=== PATIENT | female | born 1960 | race Caucasian/White ===

== ENCOUNTER → 2016-08-23 | Outpatient (CLI) | payer OTHER ==
--- NOTE | 2016-08-26 08:15 | MM ---
Reason for exam: screening (asymptomatic). Last mammogram was performed 2 years and 4 months ago. History: Patient is postmenopausal. Physical Findings: A clinical breast exam by your physician is recommended on an annual basis and results should be correlated with mammographic findings. MG Screening Mammo w CAD Bilateral CC and MLO view(s) were taken. Prior study comparison: May 02, 2014, bilateral MG screening mammo w CAD. There are scattered fibroglandular densities. Stable dermal calcifications. No significant changes when compared with prior studies. ASSESSMENT: Benign, BI-RAD 2 RECOMMENDATION: Routine screening mammogram of both breasts in 1 year.
== END | disposition home or self-care (01) ==
LOC: RADMAMWWP 09:06
PROVIDERS: ATTEND Family Medicine
DX: Z12.31 Encounter for screening mammogram for malignant neoplasm of breast (principal)

== ENCOUNTER → 2017-04-21 | Outpatient (CLI) | payer OTHER ==
--- NOTE | 2017-04-21 09:30 | US ---
EXAMINATION TYPE: US thyroid st tissue head/neck DATE OF EXAM: 04/21/2017 COMPARISON: Nuclear medicine thyroid scan 03/31/2015 CLINICAL HISTORY: 57-year-old female R94.6 abnormal thyroid labs. Technique: Multiple sonographic images of the thyroid gland are obtained. FINDINGS: Right Lobe: Right thyroid bed scanned no evidence of right thyroid tissue. Left Lobe: 4.7 x 4.3 x 1.5 cm Isthmus Thickness: 0.3 cm NODULES LEFT: # of nodules measured on left: 2 1. 1.3 x 0.7 x 1.0 cm isoechoic solid nodule at the upper pole with well-defined margins . This nod ule is wider than tall and shows intranodular vascularity. no prior 2. 0.5 X 0.3 x 0.4 cm hypoechoic solid nodule at the lower pole with well-defined margins. This nod ule is taller than wide and shows intranodular vascularity.. no prior ISTHMUS: # of nodules measured in the isthmus: 0 Bilateral neck scanned, no evidence of lymphadenopathy. IMPRESSION: 1. 2 nodules in the left lobe measuring 1.3 cm and 0.5 cm. If the larger nodule has previously not be en evaluated, FNA can be considered. 2. No tissue seen within the right thyroidectomy bed.
== END | disposition home or self-care (01) ==
LOC: RADUSWWP 08:03
PROVIDERS: ATTEND Family Medicine
DX: E04.2 Nontoxic multinodular goiter (principal)
CPT/HCPCS: 76536

== ENCOUNTER → 2020-08-28 | Outpatient (CLI) | payer OTHER ==
[2020-08-28 09:33] LABS: Partial Thromboplastin Time 23.1 sec (22.0-30.0); Prothrombin Time 10.3 sec (9.0-12.0)
[2020-08-28 09:36] LABS: Appearance,Urine Cloudy (Clear); Bacteria,Urine Rare /hpf; Bilirubin,Urine Negative (Negative); Blood,Urine Negative (Negative); Color,Urine Yellow; Glucose,Urine (UA) Negative (Negative); Hyaline Casts,Urine 9 /lpf (0-2); Ketones,Urine Negative (Negative); Leukocyte Esterase,Urine Large (Negative); Mucus,Urine Moderate /hpf; Nitrite,Urine Negative (Negative); PH, Urine 5.5 (5.0-8.0); Protein,Urine 1+ (Negative); RBC,Urine 2 /hpf (0-5); Specific Gravity,Urine 1.034 (1.001-1.035); Squamous Epithelial Cell,Urine 8 /hpf (0-4); WBC,Urine 5 /hpf (0-5)
[2020-08-28 09:43] LABS: Albumin 4.2 g/dL (3.5-5.0); Calcium 9.9 mg/dL (8.4-10.2); Potassium 4.5 mmol/L (3.5-5.1); Total Bilirubin 0.5 mg/dL (0.2-1.3); Total Protein 7.4 g/dL (6.3-8.2)
[2020-08-28 09:59] LABS: T4, Free (Free Thyroxine) 1.71 ng/dL (0.78-2.19)
[2020-08-28 10:07] LABS: HCT 42.2 % (34.0-46.0); HGB 14.1 gm/dL (11.4-16.0); MCH 30.3 pg (25.0-35.0); MCHC 33.4 g/dL (31.0-37.0); MCV 90.8 fL (80.0-100.0); Mean Platelet Volume 9.3; Platelet Count 217 k/uL (150-450); RBC 4.65 m/uL (3.80-5.40); RDW 13.3 % (11.5-15.5); WBC 4.9 k/uL (3.8-10.6)
[2020-08-28 12:40] LABS: Lymphocytes # (M) 0.44 k/uL (1.0-4.8); Neutrophils # (M) 4.17 k/uL (1.3-7.7); Neutrophils % (M) 85 %; Nucleated Red Blood Cells 0 /100 WBC (0-0); Poikilocytosis (M) Present; Total Cells Counted 100
== END | disposition home or self-care (01) ==
LOC: LABPAT 09:00
PROVIDERS: ATTEND Orthopaedic Surgery
DX: Z01.812 Encounter for preprocedural laboratory examination (principal); E03.9 Hypothyroidism, unspecified
CPT/HCPCS: 80053; 81001; 84439; 84443; 85025; 85610; 85730; 87070

== ENCOUNTER 2020-09-11 13:34 | Day surgery (SDC) | payer OTHER ==
[2020-09-08 08:44] VITALS: BMI 35.8
[~2020-09-11 13:34] MED LIST: ACETAMINOPHEN TAB 500 MG TAB PO PRN; DEXAMETHASONE SOD PHOSPHATE 4 MG/ML 1 ML VIAL IV ONE; MELOXICAM 7.5 MG TAB PO PRN; ONDANSETRON 4 MG/2 ML VIAL IVP PRN; ROPIVACAINE/EPI/CLONIDINE/KET 50 ML SYRINGE MISCELLANE PRN; TRANEXAMIC ACID 1,000 MG in SODIUM CHLORIDE 0.9% 100 ML IVPB PRN
[2020-09-11 14:12] LABS: Glucose,Whole Blood 102 mg/dL (75-99)
[2020-09-11] MEDS: LACTATED RINGERS 1,000 ML IV SCH ×4 (14:14→21:28)
[2020-09-11] MEDS ORDERED: LIDOCAINE 1% (10MG/ML) FOR IV START INTRADERMA ONE (14:15)
[2020-09-11] MEDS ORDERED: MIDAZOLAM 2 MG/2 ML VIAL IV ONE ×3 (14:24→14:39)
[2020-09-11] MEDS: fentaNYL (PF) 50 MCG/ML 2 ML AMP IV ONE ×2 (14:24→14:38)
--- NOTE | 2020-09-11 14:55 | P.ANPRN ---
Procedure Note - Anesthesia - Nerve Block Performed Right Adductor Canal Infusion Time Out Performed: Yes ([id number]) Date of Procedure: 09/11/20 Procedure Start Time: 12:24 Procedure Stop Time: 12:31 Location of Patient: PreOp Indication: Acute Post-Operative Pain, Requested by Surgeon Specifically requested for management of pain by DrAdela: Jeramie Cuevas Sedation Type: Sedate with meaningful contact maintained Preparation: Sterile Prep, Sterile Dressing Position: Supine Catheter Depth at Skin (cm): 9 Catheter: Indwelling Needle Types: Pajunk Needle Gauge: 21 Ultrasound used to visualize needle placement: Yes Ultrasound used to observe medication spread: Yes Injectate: 0.5% Ropivacaine (see comment for volume) (15cc) Blood Aspirated: No Pain Paresthesia on Injection Noted: No Resistance on Injection: Normal Image Stored and Saved: Yes Events: Uneventful and Well Tolerated Right iPack Single Time Out Performed: Yes (142) Date of Procedure: 09/11/20 Procedure Start Time: 12:32 Procedure Stop Time: 12:37 Location of Patient: PreOp Indication: Acute Post-Operative Pain, Requested by Surgeon Specifically requested for management of pain by Dr.: Jeramie Cuevas Sedation Type: Sedate with meaningful contact maintained Preparation: Sterile Prep Position: Supine Catheter: None Needle Types: Pajunk Needle Gauge: 21 Ultrasound used to visualize needle placement: Yes Ultrasound used to observe medication spread: Yes Injectate: 0.5% Ropivacaine (see comment for volume) (15cc) Blood Aspirated: No Pain Paresthesia on Injection Noted: No Resistance on Injection: Normal Image Stored and Saved: Yes Events: Uneventful and Well Tolerated
[2020-09-11] MEDS ORDERED: ONDANSETRON 4 MG/2 ML VIAL IVP PRN (14:56)
[2020-09-11] MEDS ORDERED: MAGNESIUM HYDROXIDE 2,400 MG/10 ML CUP PO PRN (14:56)
[2020-09-11] MEDS ORDERED: NA PHOS,M-B/NA PHOS,DI-BA 133 ML ENEMA RECTAL PRN (14:56)
[2020-09-11] MEDS ORDERED: traMADol 50 MG TAB PO PRN (14:56)
[2020-09-11] MEDS ORDERED: bisacodyL 10 MG SUPP RECTAL PRN (14:56)
[2020-09-11] MEDS ORDERED: NALOXONE 0.4 MG/ML 1 ML VIAL IV PRN (14:56)
[2020-09-11] MEDS ORDERED: TEMAZEPAM 15 MG CAP PO PRN (14:56)
[2020-09-11] MEDS ORDERED: SODIUM CHLORIDE 0.9% (PF) 10 ML VIAL ONE (14:58)
[2020-09-11] MEDS ORDERED: SUCCINYLCHOLINE CHLORIDE 100 MG/5 ML SYR IV ONE (14:58)
[2020-09-11] MEDS ORDERED: ROPIVACAINE 5 MG/ML 30 ML VIAL ONE (14:58)
[2020-09-11] MEDS ORDERED: TRANEXAMIC ACID 1,000 MG/10 ML VIAL ONE (14:58)
[2020-09-11] MEDS ORDERED: PROPOFOL 10 MG/ML 20 ML VIAL IV ONE (14:58)
[2020-09-11] MEDS ORDERED: SODIUM CHLORIDE 0.9% 100 ML BAG ONE (14:58)
[2020-09-11] MEDS ORDERED: LIDOCAINE 1% INJ 10MG/ML (20 ML MDV) ONE (14:58)
[2020-09-11] MEDS ORDERED: fentaNYL (PF) 50 MCG/ML 2 ML AMP ONE (14:58)
[2020-09-11] MEDS ORDERED: ROCURONIUM 10 MG/ML (5 ML VIAL) IV ONE (14:58)
[2020-09-11] MEDS ORDERED: ceFAZolin 1,000 MG in SODIUM CHLORIDE 0.9% 1,000 ML IRRIGATION ONE (15:03)
--- NOTE | 2020-09-11 16:30 | P.OP ---
Date of Procedure: 09/11/20 Procedure(s) Performed: PREOPERATIVE DIAGNOSIS: Right knee severe osteoarthritis with genu varum POSTOPERATIVE DIAGNOSIS: Right knee severe osteoarthritis with genu varum OPERATION: Right knee cemented total replacement arthroplasty. ANESTHESIA: General and regional ESTIMATED BLOOD LOSS: 100 ml. [employer] SUPERVISOR: Addie Talbot PA-C (assistance with: patient positioning, retraction, exposure, hemostasis, leg positioning, implantation, irrigation, closure, dressing) COMPLICATIONS: None apparent. COMPONENTS IMPLANTED: Journey II BCS total knee system from [employer] INDICATIONS: Emelia is a 60 year old female with a history of right knee osteoarthritis. The patient's knee is end-stage, and conservative management has failed. The operation of knee replacement has been discussed at length in the office, as well as potential risks and complications. These are inclusive o f, but not limited to: bleeding, infection, scarring, discomfort, blood vessel and nerve damage, need for further surgery, failure to relieve symptoms, persistence, recurrence, or worsening of problems, loosening, dislocation, wear, blood clot, pulmonary embolism, , gait dysfunction, stiffness, and other risks as discussed in the office. The patient elects to proceed and the consent form has been signed. PROCEDURE: The patient was taken to the operating room and positioned on the operating room table in the supine position. Anesthesia was initiated. Care was taken to make sure that all pressure points were adequately padded. The operative lower extremity was prepped and draped in the usual aseptic fashion using ChloraPrep. Ioban drape was used for the case and the patient received intravenous antibiotics within one hour of the incision. A pneumotourniquet and leg evans were used for the case. The limb was exsanguinated with an Esmarch bandage and the tourniquet was inflated to 350 mmHg. Time-out was called confirming the patient's identity, side, procedure and administration of antibiotics and tranexamic acid. The incision was then created midline directly over the right knee, carried down through skin and into the subcutaneous tissues and down to fascia. Full thickness subcutaneous medial flap was developed. Medial parapatellar arthrotomy was performed and the interior of the knee was inspected. There was end-stage osteoarthritis of the knee with a mild to moderate genu valgum type deformity. The fat pad was excised and proximal medial release on the tibia was completed using meticulous dissection and a curved osteotome. The anterior cruciate ligament was taken down. Note was made of significant attrition of the anterior and significant degenerative appearance of the cruciate ligaments. The exposure was excellent. The knee was flexed 90 degrees and the patella was everted. The [employer] pre- made distal cutting block was attached and pinned into position. The planned cut was analyzed visually and with the alignment connor and found to be satisfactory without the need for any adjustment. The oscillating saw was then used to make the distal femoral cut and make the alignment holes for the 5 in 1 block. This cut was confirmed to be flat with the flat end of an osteotome. The 5 in 1 block was then used to create the anterior posterior condylar resections and the chamfer cuts. The retractors were placed around the tibia and the tibial surface was addressed. The [employer] pre-made guide was placed onto the exposed tibial surface and pinned into position to armand the rotational alignment. The alignment of the guide was checked for depth of plannned resection, slope, and varus valgus. Guide was confirmed to be in good position and the tibial cut was then created with protection of the posterior neurovascular structures and the collateral ligaments. The tibial cut surface was removed and sized. Spacer block technique was then used to confirm that the flexion and extension gaps were equal. Soft tissue releases and adjustment of the tibial and/or femoral cuts were made, as necessary, until the gaps were equal. This included release of the posterior cruciate ligament, which was excessively tight in this patient. The trial components were inserted. The tibial tray was allowed to self center and the patella was noted to track very well. The position of the tibial component was marked and noted to be nearly exactly aligned with the pre-drilled holes from the [employer] guide. The tibia was then finished for a stemmed tibi al component. Patellar resurfacing was performed using a reamer. The size of the required patellar component was estimated and the patellar surface was then reamed down to a residual thickness which would recreate the [place] thickness with the component. The exact placement of the patellar component was adjusted for position based on preoperative x-rays and intraoperative findings. Trial components were removed and the cut surfaces of the bone were pulse lavaged thoroughly and dried. Cement was mixed on the back table and applied to the final components. Cement was then applied to the tibial surface and pressurized into the surface using finger pressurization technique. The tibial component was then applied and excess cement was removed after it was impacted securely and noted to be flush with the cut surface. In similar fashion, the cement was applied to the cut femoral surface, pressurized in using finger pressurization and the component was impacted into place. Excess cement was removed. The polyethylene spacer was then implanted and locked into position. The patellar component was then applied in similar technique and a patellar clamp was used to hold the patella in place as the cement hardened. Once the cement had fully hardened, the knee was reinspected. Any other cement extrusion was removed and final kinematic testing showed range of motion from 0 to 130 degrees with excellent stability, both medially and laterally and appropriate alignment of the leg. Patellar tracking was excellent. The knee was then thoroughly pulse lavaged with normal saline. The tourniquet was deflated and hemostasis was obtained with electrocautery and IV tranexamic acid, 1 g given at the start of the operation and 1 g at the start of closure. Closure was with #2 Ethibond in the fascia/capsule and supplemented with #2 Quill, 2-0 Vicryl suture was used for the subcutaneous tissues and 3-0 Quill for the skin. Dermabond/Steri-Strips were then applied. A lightly compressive ashley ssing was applied using Webril and an Silvino wrap. The patient was then transferred to stretcher and taken to the recovery room in stable condition. Sponge and needle counts were correct.
[2020-09-11] MEDS ORDERED: LACTATED RINGERS 1,000 ML IV ONE (16:38)
[2020-09-11] MEDS: HYDROmorphone 0.5 MG/0.5 ML SYRINGE IVP PRN ×2 (17:04→17:11)
[2020-09-11] MEDS ORDERED: diphenhydrAMINE 50 MG/ML 1 ML VIAL IVP ONE (17:08)
[2020-09-11] MEDS ORDERED: hydrALAZINE HCL 20 MG/ML 1 ML VIAL IVP ONE (17:41)
--- NOTE | 2020-09-11 17:44 | XR ---
EXAMINATION TYPE: XR knee limited RT DATE OF EXAM: 09/11/2020 COMPARISON: NONE HISTORY: Postop knee surgery TECHNIQUE: 2 views FINDINGS: There is right knee prosthesis. Components are in anatomic position. IMPRESSION: No complicating process seen.
[2020-09-11] MEDS ORDERED: MORPHINE SULFATE 4 MG/ML SYRINGE IVP PRN (18:43)
[2020-09-11] MEDS ORDERED: SENNOSIDES-DOCUSATE SODIUM 1 EACH TAB PO SCH (21:00)
[2020-09-11] MEDS: ASPIRIN 81 MG PO SCH (21:25)
--- NOTE | 2020-09-11 21:36 | P.CONS ---
History of Present Illness - Reason for Consult Consult date: 09/11/20 - History of Present Illness Patient is a 60-year-old female with a PMH of hypothyroidism and hypertension who was admitted to the hospital for an elective right total knee replacement which she underwent earlier today without any immediate postoperative palpitations. She was seen on the surgical unit postoperatively. She reported continued 8 out of 10 right knee pain but denied additional complaints. She denied chest discomfort, shortness of breath, fever, chills, cough. Denied abdominal pain, nausea, vomiting, diarrhea. She reports compliance with her medications at home. Review of systems: Pertinent positives and negatives as discussed in HPI, a complete review of systems was performed and all other systems are negative. Physical examination: General: non toxic, no distress, appears at stated age, obese Derm: no unusual rashes/lesions no unusual ecchymoses, warm, dry Head: atraumatic, normocephalic, symmetric Eyes: EOMI, no lid lag, anicteric sclera, pupils equal round reactive to light ENT: Nose and ears atraumatic, no thrush, no pharyngeal erythema Neck: No thyromegaly, no cervical lymphadenopathy, trachea midline, supple Mouth: no lip lesion, mucus membranes moist Cardiovascular: S1S2 reg, no murmur, positive posterior tibial pulse bilateral, no edema, capillary refill less than 2 seconds Lungs: CTA bilateral, no rhonchi, no rales , no accessory muscle use Abdominal: soft, nontender to palpation, no guarding, no appreciable organomegaly, normal bowel sounds Ext: no gross muscle atrophy, muscle strength 5 out of 5 in all extremities except right lower extremity due to pain, no contractures, right lower extremity MAIDA bandage in place Neuro: CN II-XI grossly intact, light touch intact all 4 extremities, finger to nose within normal limits, Psych: Lethargic, oriented, appropriate affect Assessment/plan Status post right total knee replacement -Defer management including pain control and DVT prophylaxis to the surgical service -Patient currently on pain pump Chronic conditions: Hypothyroidism, hypertension -Continue with home meds Past Medical History Past Medical History: Hypertension, Osteoarthritis (OA), Thyroid Disorder History of Any Multi-Drug Resistant Organisms: None Reported Additional Past Surgical History / Comment(s): teeth extraction Past Anesthesia/Blood Transfusion Reactions: Previous Problems w/ Anesthesia Additional Past Anesthesia/Blood Transfusion Reaction / Comm: "very slow to wake up" Past Psychological History: No Psychological Hx Reported Smoking Status: Never smoker Past Alcohol Use History: Rare Past Drug Use History: None Reported - Past Family History Father Family Medical History: Cancer Additional Family Medical History / Comment(s): lung Brother(s) Family Medical History: Cancer Additional Family Medical History / Comment(s): brain Medications and Allergies Home Medications Medication Instructions Recorded Confirmed Type Atenolol [Tenormin] 50 mg PO QAM 09/08/20 09/08/20 History Levothyroxine Sodium [Synthroid] 88 mcg PO HS 09/08/20 09/08/20 History Multivitamins, Thera [Multivitamin 1 tab PO DAILY 09/08/20 09/08/20 History (formulary)] Naproxen Sodium [Aleve] 220 mg PO BID PRN 09/08/20 09/08/20 History Aspirin [Adult Low Dose Aspirin EC] 81 mg PO BID #1 tablet. 09/11/20 Rx Gabapentin [Neurontin] 300 mg PO BID 5 Days #10 cap 09/11/20 Rx Meloxicam [Mobic] 1 - 2 tab PO DAILY PRN #60 tab 09/11/20 Rx Ondansetron Odt [Zofran Odt] 4 mg PO Q8HR PRN #14 tab 09/11/20 Rx Sennosides-Docusate Sodium 1 tab PO BID #60 tablet 09/11/20 Rx [Senokot-S] traMADol HCL [Ultram] 50 mg PO Q6HR PRN #28 tab 09/11/20 Rx Allergies Allergy/AdvReac Type Severity Reaction Status Date / Time Iodinated Contrast Media Allergy Rash/Hives Verified 09/08/20 08:36 adhesive AdvReac Rash/Hives Verified 09/11/20 14:10 codeine AdvReac "I felt Verified 09/08/20 08:36 very high" erythromycin base AdvReac Nausea & Verified 09/08/20 08:36 Vomiting Physical Exam Vitals: Vital Signs Temp Pulse Pulse Resp BP BP Pulse Ox 09/11/20 20:21 98 09/11/20 18:30 97.1 F L 94 18 157/74 97 09/11/20 18:15 65 16 128/66 100 09/11/20 18:02 47 L 18 161/73 100 09/11/20 17:46 55 L 16 173/77 98 09/11/20 17:32 54 L 16 177/78 100 09/11/20 17:16 50 L 16 191/78 100 09/11/20 16:56 97.3 F L 59 L 20 201/84 99 09/11/20 14:42 49 L 16 148/66 99 09/11/20 14:10 97 F L 20 142/85 100 Intake and Output 09/11/20 09/11/20 09/11/20 06:59 14:59 22:59 Intake Total 200 1351 Output Total 50 Balance 200 1301 Intake: IV 200 1351 Output: Estimated Blood Loss 50 Other: Weight 90 kg 90 kg Results Labs: Abnormal Lab Results - Last 24 Hours (Table) 09/11/20 Range/Units 14:10 POC Glucose (mg/dL) 102 H (75-99) mg/dL
[2020-09-12] MEDS ORDERED: LEVOTHYROXINE 88 MCG TAB PO SCH ×2 (06:30→21:00)
[2020-09-12] MEDS: ASPIRIN 81 MG PO SCH (06:55)
[2020-09-12] MEDS: LACTATED RINGERS 1,000 ML IV SCH (07:00)
--- NOTE | 2020-09-12 07:03 | P.PN ---
Progress Note - Text Progress Note Date: 09/12/20 Postoperative day # 1 status post total knee arthroplasty, and adductor canal catheter placed for postoperative analgesia, currently at ropivacaine 0.2% 8 mL per hour and continuous infusion, visual analogue scale is 3/10, patient using oral pain medication for breakthrough pain. Assessment and plan= Acute postoperative pain, adductor canal catheter for pain control, pain is well controlled we'll continue the same management.
[2020-09-12 07:43] VITALS: BP 158/76; PULSE 66; RESP 18; TEMP 98.7
--- NOTE | 2020-09-12 08:52 | P.DS ---
Providers Expected date of discharge: 09/12/20 Attending physician: Jeramie Cuevas Consults: 09/11/20 15:02 Consult Physician Routine Consulting Provider: Tico Gardiner Consult Reason/Comments: Medical management Do you want consulting provider notified?: Yes Primary care physician: Humphrey Cannon - Discharge Diagnosis(es) (1) Osteoarthritis of right knee Current Visit: Yes Status: Acute (2) Status post total right knee replacement Current Visit: Yes Status: Acute Hospital Course: This is a 60-year-old female with known history of degenerative arthritis of the right knee. The patient presented for evaluation as an outpatient. After discu ssion and consideration patient elects to proceed with total knee arthroplasty. The patient is seen preoperatively by Dr. Cuevas and medically cleared for surgery by their primary care physician. Patient is admitted to [facility] on 09/11/2020 for total knee arthroplasty. The procedure is performed without complication or sequelae. The patient is doing well postoperatively. Labs and vital signs are stable on day of discharge. On day of discharge patient's knee incision is healing well. There is minimal erythema. There is no drainage noted at this time. There is minimal soft tis perla swelling to the knee. Patient has full foot and ankle motion without difficulty or pain. Calf is soft and nontender to palpation. Neurovascular status to the right lower extremity is intact. Patient is discharged home in good condition. Opioid start talking form is reviewed and signed. Please see med rec for accurate list of home medications. Plan - Discharge Summary Discharge Rx Participant: No New Discharge Prescriptions: New Meloxicam [Mobic] 1 - 2 tab PO DAILY PRN #60 tab PRN Reason: Pain traMADol HCL [Ultram] 50 mg PO Q6HR PRN #28 tab PRN Reason: Pain Aspirin [Adult Low Dose Aspirin EC] 81 mg PO BID #1 tablet. Gabapentin [Neurontin] 300 mg PO BID 5 Days #10 cap Sennosides-Docusate Sodium [Senokot-S] 1 tab PO BID #60 tablet Ondansetron Odt [Zofran Odt] 4 mg PO Q8HR PRN #14 tab PRN Reason: Nausea No Action Atenolol [Tenormin] 50 mg PO QAM Naproxen Sodium [Aleve] 220 mg PO BID PRN PRN Reason: Pain Multivitamins, Thera [Multivitamin (formulary)] 1 tab PO DAILY Levothyroxine Sodium [Synthroid] 88 mcg PO HS Discharge Medication List Atenolol [Tenormin] 50 mg PO QAM 09/08/20 [History] Levothyroxine Sodium [Synthroid] 88 mcg PO HS 09/08/20 [History] Multivitamins, Thera [Multivitamin (formulary)] 1 tab PO DAILY 09/08/20 [History] Naproxen Sodium [Aleve] 220 mg PO BID PRN 09/08/20 [History] Aspirin [Adult Low Dose Aspirin EC] 81 mg PO BID #1 tablet. 09/11/20 [Rx] Gabapentin [Neurontin] 300 mg PO BID 5 Days #10 cap 09/11/20 [Rx] Meloxicam [Mobic] 1 - 2 tab PO DAILY PRN #60 tab 09/11/20 [Rx] Ondansetron Odt [Zofran Odt] 4 mg PO Q8HR PRN #14 tab 09/11/20 [Rx] Sennosides-Docusate Sodium [Senokot-S] 1 tab PO BID #60 tablet 09/11/20 [Rx] traMADol HCL [Ultram] 50 mg PO Q6HR PRN #28 tab 09/11/20 [Rx] Follow up Appointment(s)/Referral(s): Addie Talbot, ASUNCION [PHYSICIAN CANE PACKER] - 2 Weeks Activity/Diet/Wound Care/Special Instructions: May bear weight as tolerated with walker. May shower 48hours post op. Keep Optifoam dressing intact 10 days post op. Discharge Disposition: HOME SELF-CARE
[2020-09-12] MEDS ORDERED: MELOXICAM 7.5 MG TAB PO SCH (09:00)
[2020-09-12] MEDS ORDERED: atenoloL 50 MG TAB PO SCH (09:00)
[2020-09-12 09:11] LABS: Basophils # (A) 0.01 X 10*3/uL (0.00-0.10); Basophils % (A) 0.1 %; Eosinophils # (A) 0 X 10*3/uL (0.04-0.35); Eosinophils % (A) 0 %; HCT 35.5 % (37.2-46.3); HGB 11.4 g/dL (12.0-15.0); Lymphocytes % (A) 9.2 %; MCH 29.5 pg (27.0-32.0); MCHC 32.1 g/dL (32.0-37.0); MCV 91.7 fL (80.0-97.0); Mean Platelet Volume 12.5 fL (9.5-12.2); Monocytes # (A) 0.85 X 10*3/uL (0.20-1.00); Monocytes % (A) 6.5 %; Neutrophils # (A) 10.96 X 10*3/uL (1.80-7.70); Neutrophils % (A) 83.6 %; Platelet Count 216 X 10*3/uL (140-440); RBC 3.87 X 10*6/uL (4.10-5.20); RDW 14.3 % (11.5-14.5)
--- NOTE | 2020-09-12 09:58 | P.PN ---
Subjective Progress Note Date: 09/12/20 Hospital course: Patient is a very pleasant 60-year-old female with a past medical history of hypertension and hypothyroidism. She is currently admitted status post total right knee arthroplasty completed by Dr. Cuevas. We have been consulted to follow along throughout her hospitalization to provide continued close medical management. Patient is currently postoperative day 1. She reports doing well. States pain is controlled. Denies having any postoperative nausea or vomiting. Patient has been ambulating to and from restroom without difficulties. Patient denies having any complaints or needs including headache, lightheadedness, chest pain, palpitations, shortness of breath, abdominal pain, or experiencing any numbness/tingling/weakness in her extremities. Physical exam: General: non toxic, no distress, appears at stated age Derm: warm, dry Head: atraumatic, normocephalic, symmetric Eyes: EOMI, no lid lag, anicteric sclera Mouth: no lip lesion, mucus membranes moist Cardiovascular: S1S2 reg, no murmur, positive posterior tibial pulse bilateral, Lungs: CTA bilateral, no rhonchi, no rales , no accessory muscle use Abdominal: soft, nontender to palpation, no guarding, no appreciable organomegaly Ext: no gross muscle atrophy, no edema, no contractures. Postoperative dressing right knee intact no signs of bleeding or drainage. Neuro: CN II-XI grossly intact, no focal neuro deficits Psych: Alert, oriented, appropriate affect Plan of care: Status post total right knee arthroplasty -Pain management, DVT prophylaxis, wound care, PT/OT, and weightbearing per primary admitting orthopedic team. -Patient currently on DVT prophylaxis with aspirin and SUNSHINE hose. Hypertension -Monitor vital signs and Continue daily medication regimen. Hypothyroidism -Continue daily medication regimen. Thank you for allowing us to participate in the care of this pleasant patient. Do not hesitate to contact us with questions. Someone can be reached from the [facility]– [place]Note 2[place] hospitalist group all hours of the day at [phone] or via [employer] serve.. Objective - Vital Signs Vital signs: Vital Signs Temp 98.7 F 09/12/20 07:43 Pulse 66 09/12/20 07:43 Resp 18 09/12/20 07:43 BP 158/76 09/12/20 07:43 Pulse Ox 97 09/12/20 07:43 Intake & Output 09/11/20 09/12/2009/12/21 18:59 06:59 18:59 Intake Total 1551 200 300 Output Total 50 Balance 1501 200 300 Weight 90 kg Intake: IV 1551 Oral 200 300 Output: Estimated Blood Loss 50 Other: Voiding Method Toilet Toilet # Voids 1 - Labs CBC & Chem 7: 09/12/20 06:04 Labs: Abnormal Lab Results - Last 24 Hours (Table) 09/11/20 09/12/20 Range/Units 14:10 06:04 WBC 13.10 H (4.50-10.00) X 10*3/uL RBC 3.87 L (4.10-5.20) X 10*6/uL Hgb 11.4 L (12.0-15.0) g/dL Hct 35.5 L (37.2-46.3) % MPV 12.5 H (9.5-12.2) fL Immature Gran # 0.08 H (0.00-0.04) X 10*3/uL Neutrophils # 10.96 H (1.80-7.70) X 10*3/uL Eosinophils # 0 L (0.04-0.35) X 10*3/uL POC Glucose (mg/dL) 102 H (75-99) mg/dL
== END 2020-09-12 10:44 | disposition home or self-care (01) ==
LOC: OR 13:34 → 4SSUR 16:57 → OR 09-12 10:44
PROVIDERS: ATTEND Orthopaedic Surgery
DX: M17.11 Unilateral primary osteoarthritis, right knee (principal); M21.161 Varus deformity, not elsewhere classified, right knee; I10 Essential (primary) hypertension; E03.9 Hypothyroidism, unspecified; Z79.899 Other long term (current) drug therapy; Z88.5 Allergy status to narcotic agent; Z88.1 Allergy status to other antibiotic agents; Z91.041 Radiographic dye allergy status; R20.2 Paresthesia of skin; R53.1 Weakness
CPT/HCPCS: 97161; 64999; 64448; 76942; 85025; 88300; 73560; 27447; C1713; C1776; J2250; J2270; J0360; J1200; J1100; J0690 ×3; J2405; J2001; J3010; J2795; J0330; J2704; J1170

== ENCOUNTER → 2021-07-31 | Outpatient (CLI) | payer OTHER ==
--- NOTE | 2021-07-31 16:10 | BD ---
EXAMINATION TYPE: Axial Bone Density DATE OF EXAM: 07/31/2021 COMPARISON: NONE CLINICAL HISTORY: 61 years year old Female. ICD-10 CODE: BONE DENSITY Height: 5 FT 2 IN Weight: 206 FRAX RISK QUESTIONS: Alcohol (3 or more units per day): NO Family History (Parent hip fracture): NO Glucocorticoids (More than 3mos): NO (Ex: prednisone, prednisolone, methylprednisolone, dexamethasone, and hydrocortisone). History of Fracture in Adulthood: NO Secondary Osteoporosis: 1. Type 1 Diabetes: NO 2. Hyperthyroidism: NO 3. Menopause before 45: AROUND 4. Malnutrition: NO 5. Chronic liver disease: NO Rheumatoid Arthritis: NO Current Tobacco Use: NO RISK FACTORS HISTORY OF: Surgery to Spine/Hip(right/left)/Wrist (right/left): LUMBAR When: 2000 Family History of Osteoporosis: NO Active: YES Diet low in dairy products/other sources of calcium: NO Postmenopausal woman: YES Take estrogen and/or progesterone medications: NO Lost more than 2 inches in height since high school: NO Frequent falls: NO Poor Health: GOOD Hyperparathyroidism: NO Adrenal Insufficiency: NO MEDICATIONS: Thyroid Medications: YES Which medication: LEVOTHYROXINE How Long: APPROX 22 YEARS Additional Medications: LEVOTHYROXINE, LOSARTAN Additional History: EXAM MEASUREMENTS: Bone mineral density about the R hip (g/cm2): 0.911 Bone mineral density about the L hip (g/cm2): 0.917 T Score values are as follows: -----R Neck: -0.9 -----L Neck: -0.9 -----R Total: -0.7 -----L Total: -0.4 BASELINE Bone mineral density about the L Wrist (g/cm2): 0.726 T Score values are as follows: -----Dist. R+U: 0.7 -----Prox. R+U: 0.9 -----Radius total: 0.9 BASELINE FRAX%s: The graph provided illustrates a 6.8 % chance for a major osteoporotic fx and a 0.4 % chance for the hips probability for fx in 10 years time. IMPRESSION: Normal (Values between +1 and -1 indicate normal bone mass). However, note that measurements are bord ering on osteopenia at both hips. Consider repeating this study in 5 years or sooner if there is some new clinical indication. NOTE: T-SCORE=SD OF THE YOUNG ADULT MEAN.
--- NOTE | 2021-08-01 08:57 | MM ---
Reason for Exam: Screening (asymptomatic). Last mammogram was performed 4 year(s) and 11 month(s) ago. Patient History: Menarche at age 11. First Full-Term at age 28. Postmenopausal. Risk Values: Zoraida 5 year model risk: 1.7%. NCI Lifetime model risk: 7.7%. Film Views: Bilateral CC views were taken. Bilateral MLO views were taken. Left CCNIP views were taken. Prior Study Comparison: 05/02/2014 Bilateral Screening Mammogram, [facility]. 08/23/2016 Bilateral Screening Mammogram, [facility]. Tissue Density: There are scattered fibroglandular densities. Findings: Analyzed By CAD. There is no suspicious group of microcalcifications or new suspicious mass in either breast. Benign-appearing calcifications. Stable asymmetric density central margin right breast. Calcifications upper outer quadrant left breast. Overall Assessment: Incomplete: need additional imaging evaluation, BI-RAD 0 Management: Special View Mammogram of both breasts. If lesion persists on supplemental views, image directed ultrasound is recommended. [facility] will attempt to contact patient to return for supplemental views and ultrasound if indicated. Left . A clinical breast exam by your physician is recommended on an annual basis and results should be correlated with mammographic findings. Electronically signed and approved by: Humphrey Timmons M.D. Radiologis
== END | disposition home or self-care (01) ==
LOC: RADMAMWWP 09:36
DX: Z12.31 Encounter for screening mammogram for malignant neoplasm of breast (principal); M85.89 Other specified disorders of bone density and structure, multiple sites; Z78.0 Asymptomatic menopausal state
CPT/HCPCS: 77067; 77080

== ENCOUNTER → 2022-01-05 | Outpatient (CLI) | payer OTHER ==
[2022-01-06 09:18] LABS: African American GFR (CKD) 79.4 (60.0-200.0); Anion Gap 11.2 mmol/L (10.00-18.00); BUN/Creat Ratio 18.78 Ratio (12.00-20.00); Blood Urea Nitrogen 16.9 mg/dL (9.0-27.0); Calcium 9.6 mg/dL (8.7-10.3); Carbon Dioxide 25.8 mmol/L (20.0-27.5); Non-African American GFR(CKD) 68.5 (60.0-200.0); Potassium 4.1 mmol/L (3.5-5.5)
== END | disposition home or self-care (01) ==
LOC: LABWHC1 11:11
PROVIDERS: ATTEND Family Medicine
DX: I10 Essential (primary) hypertension (principal); R92.8 Other abnormal and inconclusive findings on diagnostic imaging of breast; Z71.2 Person consulting for explanation of examination or test findings
CPT/HCPCS: 36415; 80048

== ENCOUNTER → 2022-07-16 | Outpatient (CLI) | payer OTHER ==
[2022-07-16 14:40] LABS: HCT 44.2 % (37.2-46.3); HGB 14.1 g/dL (12.0-15.0); MCH 30.3 pg (27.0-32.0); MCHC 31.9 g/dL (32.0-37.0); MCV 95.1 fL (80.0-97.0); Mean Platelet Volume 13.4 fL (9.5-12.2); NRBC Per 100 WBC 0 /100 WBCS (0.0-0.0); Platelet Count 261 X 10*3/uL (140-440); RBC 4.65 X 10*6/uL (4.10-5.20); RDW 14.1 % (11.5-14.5); WBC 7.16 X 10*3/uL (4.50-10.00)
[2022-07-16 14:53] LABS: ALT 32 U/L (8-44); AST 26 U/L (13-35); Albumin 4.4 g/dL (3.8-4.9); Albumin/Globulin Ratio 1.43 (1.60-3.17); Alkaline Phosphatase 75 U/L (41-126); BUN/Creat Ratio 12.72 Ratio (12.00-20.00); Blood Urea Nitrogen 13.1 mg/dL (9.0-27.0); Calcium 9.7 mg/dL (8.7-10.3); Carbon Dioxide 24.9 mmol/L (20.0-27.5); Chloride 103 mmol/L (96-109); Chol/HDL Ratio 4.37 Ratio; Globulin 3.1 g/dL (1.6-3.3); Glucose 146 mg/dL (70-110); Non-African American GFR(CKD) 57.8 (60.0-200.0); Potassium 4.1 mmol/L (3.5-5.5); Sodium 141 mmol/L (135-145); Total Protein 7.4 g/dL (6.2-8.2)
== END | disposition home or self-care (01) ==
LOC: LABWHC1 08:12
PROVIDERS: ATTEND Family Medicine
DX: I10 Essential (primary) hypertension (principal); E11.9 Type 2 diabetes mellitus without complications; E78.5 Hyperlipidemia, unspecified; E03.9 Hypothyroidism, unspecified
CPT/HCPCS: 36415; 80053; 80061; 83036; 84443; 85027

== ENCOUNTER → 2022-09-09 | Outpatient (CLI) | payer OTHER ==
[2022-09-09 13:41] LABS: INR 0.9 (<1.2); Prothrombin Time 10.1 sec (9.0-12.0)
[2022-09-09 13:43] LABS: Appearance,Urine Clear (Clear); Bilirubin,Urine Negative (Negative); Blood,Urine Negative (Negative); Color,Urine Yellow; Glucose,Urine (UA) 4+ (Negative); Ketones,Urine Negative (Negative); Leukocyte Esterase,Urine Small (Negative); Mucus,Urine Rare /hpf; Nitrite,Urine Negative (Negative); Protein,Urine Negative (Negative); RBC,Urine 1 /hpf (0-5); Specific Gravity,Urine 1.029 (1.001-1.035); Squamous Epithelial Cell,Urine 2 /hpf (0-4); Urobilinogen,Urine <2.0 mg/dL (<2.0); WBC,Urine 7 /hpf (0-5)
[2022-09-09 16:07] LABS: ALT 31 U/L (8-44); AST 25 U/L (13-35); Albumin 4.5 d/dL (3.8-4.9); Albumin/Globulin Ratio 1.36 Ratio (1.60-3.17); Alkaline Phosphatase 78 U/L (41-126); Blood Urea Nitrogen 15.5 mg/dL (9.0-27.0); Carbon Dioxide 28.1 mmol/L (21.6-31.8); Chloride 98 mmol/L (96-109); Globulin 3.3 d/dL (1.6-3.3); Glucose 156 mg/dL (70-110); Potassium 3.5 mmol/L (3.5-5.5); Sodium 139 mmol/L (135-145); Total Bilirubin 0.4 mg/dL (0.3-1.2); Total Protein 7.8 d/dL (6.2-8.2)
[2022-09-09 16:53] LABS: HCT 45.7 % (37.2-46.3); HGB 15.1 d/dL (12.0-15.0); MCH 30.5 pg (27.0-32.0); MCV 92.3 FL (80.0-97.0); NRBC Per 100 WBC 0 X 10*3/uL (0.00-0.01); Platelet Count 299 X 10*3/uL (140-440); RBC 4.95 X 10*6/uL (4.10-5.20)
== END | disposition home or self-care (01) ==
LOC: LABPAT 11:31
PROVIDERS: ATTEND Orthopaedic Surgery
DX: Z01.812 Encounter for preprocedural laboratory examination (principal); M17.12 Unilateral primary osteoarthritis, left knee
CPT/HCPCS: 80053; 81001; 85027; 85610; 85730; 87070

== ENCOUNTER → 2022-09-23 | Day surgery (SDC) | payer OTHER ==
[~2022-09-23] MED LIST changes: +HYDROmorphone 0.5 MG/0.5 ML SYRINGE IVP PRN; +LACTATED RINGERS 1,000 ML IV SCH; +ONDANSETRON 4 MG/2 ML VIAL IVP ONE; -ROPIVACAINE/EPI/CLONIDINE/KET 50 ML SYRINGE MISCELLANE PRN; +TRANEXAMIC 1,000 MG/100ML-NACL 1,000 MG in SALINE 1 100ML.BAG IVPB PRN; -TRANEXAMIC ACID 1,000 MG in SODIUM CHLORIDE 0.9% 100 ML IVPB PRN
[2022-09-23 14:38] VITALS: BP 149/70; PULSE 89; RESP 16; TEMP 97
== END ==
LOC: OR 13:43
PROVIDERS: ATTEND Orthopaedic Surgery
DX: M17.12 Unilateral primary osteoarthritis, left knee (principal); M21.162 Varus deformity, not elsewhere classified, left knee; M70.52 Other bursitis of knee, left knee; Z53.8 Procedure and treatment not carried out for other reasons; I10 Essential (primary) hypertension; E03.9 Hypothyroidism, unspecified; E11.9 Type 2 diabetes mellitus without complications; Z79.84 Long term (current) use of oral hypoglycemic drugs; Z79.890 Hormone replacement therapy; Z79.899 Other long term (current) drug therapy; Z88.5 Allergy status to narcotic agent; Z88.1 Allergy status to other antibiotic agents; Z91.041 Radiographic dye allergy status; Z83.3 Family history of diabetes mellitus; Z82.49 Family history of ischemic heart disease and other diseases of the circulatory system

== ENCOUNTER 2022-10-07 13:00 | Day surgery (SDC) | payer OTHER ==
[2022-09-27 16:20] VITALS: BMI 35.1
[~2022-10-07 13:00] MED LIST changes: -DEXAMETHASONE SOD PHOSPHATE 4 MG/ML 1 ML VIAL IV ONE; -HYDROmorphone 0.5 MG/0.5 ML SYRINGE IVP PRN; -LACTATED RINGERS 1,000 ML IV SCH; +MIDAZOLAM 2 MG/2 ML VIAL IV PRN; -ONDANSETRON 4 MG/2 ML VIAL IVP ONE; +fentaNYL (PF) 50 MCG/ML 2 ML AMP IV PRN
[2022-10-07 13:42] LABS: Glucose,Whole Blood 110 mg/dL (70-110)
[2022-10-07] MEDS: LACTATED RINGERS 1,000 ML IV SCH ×2 (13:44→23:48)
[2022-10-07] MEDS ORDERED: DEXAMETHASONE SOD PHOSPHATE 4 MG/ML 1 ML VIAL IVP ONE (13:54)
[2022-10-07] MEDS ORDERED: MIDAZOLAM 2 MG/2 ML VIAL IVP ONE (14:05)
[2022-10-07] MEDS ORDERED: fentaNYL (PF) 50 MCG/1 ML VIAL IVP ONE (14:05)
[2022-10-07] MEDS ORDERED: bisacodyL 10 MG SUPP RECTAL PRN (14:28)
[2022-10-07] MEDS ORDERED: HYDROmorphone 1 MG/ML 1 ML SYRINGE IVP PRN (14:28)
[2022-10-07] MEDS ORDERED: NA PHOS,M-B/NA PHOS,DI-BA 133 ML ENEMA RECTAL PRN (14:28)
[2022-10-07] MEDS ORDERED: hydrOXYzine pamoate 25 MG CAP PO PRN (14:28)
[2022-10-07] MEDS ORDERED: traMADol 50 MG TAB PO PRN (14:28)
[2022-10-07] MEDS ORDERED: TEMAZEPAM 15 MG CAP PO PRN (14:28)
[2022-10-07] MEDS ORDERED: MAGNESIUM HYDROXIDE 2,400 MG/30 ML CUP PO PRN (14:28)
[2022-10-07] MEDS ORDERED: NALOXONE 0.4 MG/ML 1 ML VIAL IV PRN (14:28)
[2022-10-07] MEDS ORDERED: HYDROmorphone 0.5 MG/0.5 ML SYRINGE IVP PRN ×2 (14:28)
[2022-10-07] MEDS ORDERED: GLYCOPYRROLATE 0.2 MG/ML 2 ML VIAL ONE (14:32)
[2022-10-07] MEDS ORDERED: ROPIVACAINE 5 MG/ML 30 ML VIAL ONE (14:32)
[2022-10-07] MEDS ORDERED: diphenhydrAMINE 50 MG/ML 1 ML VIAL ONE (14:32)
[2022-10-07] MEDS ORDERED: fentaNYL (PF) 50 MCG/ML 2 ML AMP ONE (14:32)
[2022-10-07] MEDS ORDERED: HYDROmorphone (PF) 1 MG/ML ONE (14:32)
[2022-10-07] MEDS ORDERED: SODIUM CHLORIDE 0.9% (PF) 10 ML VIAL ONE (14:32)
[2022-10-07] MEDS ORDERED: SUCCINYLCHOLINE CHLORIDE 200 MG/10 ML VIAL IV ONE (14:32)
[2022-10-07] MEDS ORDERED: PROPOFOL 10 MG/ML 20 ML VIAL IV ONE (14:32)
[2022-10-07] MEDS ORDERED: MIDAZOLAM 2 MG/2 ML VIAL ONE (14:32)
[2022-10-07] MEDS ORDERED: ROCURONIUM 10 MG/ML (5 ML VIAL) IV ONE (14:32)
[2022-10-07] MEDS ORDERED: LIDOCAINE 2% INJ 20 MG/ML (2 ML VIAL) ONE (14:32)
[2022-10-07] MEDS ORDERED: NEOSTIGMINE 1 MG/ML 10 ML VIAL ONE (14:32)
--- NOTE | 2022-10-07 16:01 | P.OP ---
Date of Procedure: 10/07/22 Procedure(s) Performed: PREOPERATIVE DIAGNOSIS: Left knee severe osteoarthritis with genu varum POSTOPERATIVE DIAGNOSIS: Left knee severe osteoarthritis with genu varum OPERATION: Left knee cemented total replacement arthroplasty. ANESTHESIA: General and regional ESTIMATED BLOOD LOSS: 100 ml. SAMPLE TAKER OPERATOR: Addie Talbot PA-C (assistance with: patient positioning, retraction, exposure, hemostasis, leg positioning, implantation, irrigation, closure, dressing) COMPLICATIONS: None apparent. COMPONENTS IMPLANTED: Journey II BCS total knee system from [employer] [facility] [facility] INDICATIONS: Emelia is a 62 year old femlae with a history of left knee osteoarthritis. The patient's knee is end-stage, and conservative management has failed. The operation of knee replacement has been discussed at length in the office, as well as potential risks and complications. These are inclusive of, but not limited to: bleeding, infection, scarring, discomfort, blood vessel and nerve damage, need for further surgery, failure to relieve symptoms, persistence, recurrence, or worsening of problems, loosening, dislocation, wear, blood clot, pulmonary embolism, , gait dysfunction, stiffness, and other risks as discussed in the office. The patient elects to proceed and the consent form has been signed. PROCEDURE: The patient was taken to the operating room and positioned on the operating room table in the supine position. Anesthesia was initiated. Care was taken to make sure that all pressure points were adequately padded. The operative lower extremity was prepped and draped in the usual aseptic fashion using ChloraPrep. Ioban drape was used for the case and the patient received i ntravenous antibiotics within one hour of the incision. A pneumotourniquet and leg evans were used for the case. The limb was exsanguinated with an Esmarch bandage and the tourniquet was inflated to 275 mmHg. Time-out was called confirming the patient's identity, side, procedure and administration of antibiotics and tranexamic acid. The incision was then created midline directly over the left knee, carried down through skin and into the subcutaneous tissues and down to fascia. Full thickness subcutaneous medial flap was developed. Medial parapatellar arthrotomy was performed and the interior of the knee was inspected. There was end-stage osteoarthritis of the knee with a mild to moderate genu valgum type deformity. The fat pad was excised and proximal medial release on the tibia was completed using meticulous dissection and a curved osteotome. The anterior cruciate ligament was taken down. Note was made of significant attrition of the anterior and significant degenerative appearance of the cruciate ligaments. The exposure was excellent. The knee was flexed 90 degrees and the patella was everted. The [employer] pre- made distal cutting block was attached and pinned into position. The planned cut was analyzed visually and with the alignment connor and found to be satisfactory without the need for any adjustment. The oscillating saw was then used to make the distal femoral cut and make the alignment holes for the 5 in 1 block. This cut was confirmed to be flat with the flat end of an osteotome. The 5 in 1 block was then used to create the anterior posterior condylar resections and the chamfer cuts. The retractors were placed around the tibia and the tibial surface was addressed. The [employer] pre-made guide was placed onto the exposed tibial surface and pinned into position to armand the rotational alignment. The alignment of the guide was checked for depth of plannned resection, slope, and varus valgus. Guide was confirmed to be in good position and the tibial cut was then created with protection of the posterior neurovascular structures and the collateral ligaments. The tibial cut surface was removed and sized. Spacer block technique was then used to confirm that the flexion and extension gaps were equal. Soft tissue releases and adjustment of the tibial and/or femoral cuts were made, as necessary, until the gaps were equal. This included release of the posterior cruciate ligament, which was excessively tight in this patient. The trial components were inserted. The tibial tray was allowed to self center and the patella was noted to track very well. The position of the tibial component was marked and noted to be nearly exactly aligned with the pre-drilled holes from the [employer] guide. The tibia was then finished for a stemmed tibial component. Patellar resurfacing was performed using a reamer. The size of the required patellar component was estimated and the patellar surface was then reamed down to a residual thickness which would recreate the levelock thickness with the component. The exact placement of the patellar component was adjusted for position based on preoperative x-rays and intraoperative findings. Trial components were removed and the cut surfaces of the bone were pulse lavaged thoroughly and dried. Cement was mixed on the back table and applied to the final components. Cement was then applied to the tibial surface and pressurized into the surface using finger pressurization technique. The tibial component was then applied and excess cement was removed after it was impacted securely and noted to be flush with the cut surface. In similar fashion, the cement was applied to the cut femoral surface, pressurized in using finger pressurization and the component was impacted into place. Excess cement was removed. The polyethylene spacer was then implanted and locked into position. The patellar component was then applied in similar technique and a patellar clamp was used to hold the patella in place as the cement hardened. Once the cement had fully hardened, the knee was reinspected. Any other cement extrusion was removed and final kinematic testing showed range of motion from 0 to 130 degrees with excellent stability, both medially and laterally and appropriate alignment of the leg. Patellar tracking was excellent. The knee was then thoroughly pulse lavaged with normal saline. The tourniquet was deflated and hemostasis was obtained with electrocautery and IV tranexamic acid, 1 g given at the start of the operation and 1 g at the start of closure. Closure was with #2 Ethibond in the fascia/capsule and supplemented with #2 Quill, 2-0 Vicryl suture was used for the subcutaneous tissues and 3-0 Quill for the skin. Dermabond/Steri-Strips were then applied. A lightly compressive dressing was applied using Webril and an Silvino wrap. The patient was then transferred to stretcher and taken to the recovery room in stable condition. Sponge and needle counts were correct.
[2022-10-07] MEDS ORDERED: IV FLUID CONTINUATION 900 ML IV ONE (16:28)
[2022-10-07] MEDS ORDERED: ROPIVACAINE 1,100 MG, SODIUM CHLORIDE 0.9% 500 ML 330 ML, EMPTY PAIN BALL 1 EACH MISCELLANE PRN ×2 (17:22)
[2022-10-07] MEDS ORDERED: ONDANSETRON 4 MG/2 ML VIAL IVP ONE (17:29)
--- NOTE | 2022-10-07 17:47 | XR ---
EXAMINATION TYPE: XR knee limited LT DATE OF EXAM: 10/07/2022 5:21 PM INDICATION: Patient age:Female; 62 years old; Reason for study: POST OP; PHH. COMPARISON: None. TECHNIQUE: The Left knee(s) was examined in Frontal, lateral and oblique projections. FINDINGS: Status post total knee arthroplasty changes with hardware in appropriate alignment and in tact. No evidence of fracture. Subcutaneous lucencies and lucencies within the joint consistent with surgical changes. IMPRESSION: Status post total knee arthroplasty changes with hardware intact and appropriate alignment. No fractu res identified.
--- NOTE | 2022-10-07 20:20 | P.ANPRN ---
Procedure Note - Anesthesia - Nerve Block Performed Left Adductor Canal Time Out Performed: Yes (14:04) Date of Procedure: 10/07/22 Procedure Start Time: 14:04 Procedure Stop Time: 14:12 Location of Patient: PreOp Indication: Acute Post-Operative Pain, Requested by Surgeon (DR kim) Sedation Type: Sedate with meaningful contact maintained Preparation: Sterile Prep, Sterile Dressing Position: Supine Catheter: Indwelling Needle Types: Pajunk Needle Gauge: 21 Ultrasound used to visualize needle placement: Yes Ultrasound used to observe medication spread: Yes Injectate: 0.5% Ropivacaine (see comment for volume) (20cc) Blood Aspirated: No Pain Paresthesia on Injection Noted: No Resistance on Injection: Normal Image Stored and Saved: Yes Events: Uneventful and Well Tolerated
--- NOTE | 2022-10-07 20:21 | P.ANPRN ---
Procedure Note - Anesthesia - Nerve Block Performed Left iPack Time Out Performed: Yes Date of Procedure: 10/07/22 Procedure Start Time: 14:13 Procedure Stop Time: 14:17 Location of Patient: PreOp Indication: Acute Post-Operative Pain, Requested by Surgeon (DR Cuevas) Sedation Type: Sedate with meaningful contact maintained Preparation: Sterile Prep Position: Supine Catheter: None Needle Types: Pajunk Needle Gauge: 21 Ultrasound used to visualize needle placement: Yes Ultrasound used to observe medication spread: Yes Injectate: 0.5% Ropivacaine (see comment for volume) (15cc +5cc PF Normal saline) Blood Aspirated: No Pain Paresthesia on Injection Noted: No Resistance on Injection: Normal Image Stored and Saved: Yes Events: Uneventful and Well Tolerated
[2022-10-07] MEDS ORDERED: SENNOSIDES-DOCUSATE SODIUM 1 EACH TAB PO SCH (21:00)
[2022-10-07] MEDS: ASPIRIN 81 MG PO SCH (21:59)
[2022-10-08] MEDS: LACTATED RINGERS 1,000 ML IV SCH ×2 (01:51→08:24)
[2022-10-08 06:01] LABS: Glucose,Whole Blood 119 mg/dL (70-110)
[2022-10-08] MEDS ORDERED: DEXTROSE 50% SYRINGE 50 ML IVP PRN ×2 (06:54)
--- NOTE | 2022-10-08 07:24 | P.PN ---
Progress Note - Text Progress Note Date: 10/08/22 (807) Anesthesiology Postop day 1 status post total knee arthroplasty with adductor canal catheter. Patient doing well. VAS 4 out of 10. Gross strength intact in lower extremity. Afebrile. Denies alterations in sensorium. Catheter site intact. Heart regular rate Lungs nonlabored Abdomen nondistended Assessment: Postop day 1 status post total knee arthroplasty with adductor canal catheter Plan: 1.All questions answered. Maintain catheter 2 more days with patient removal at home. Instructions to be given at discharge. 2.This note was dictated using [employer] software. Please be advised there is a potential for misspellings or errors in milanese knitting machine operator.
[2022-10-08] MEDS: INSULIN ASPART (NovoLOG) 100 UNIT/ML VIAL SQ SCH ×2 (07:57→11:15)
[2022-10-08] MEDS: ASPIRIN 81 MG PO SCH (08:19)
[2022-10-08 08:31] VITALS: BP 123/68; PULSE 71; TEMP 98.1
[2022-10-08] MEDS ORDERED: LOSARTAN 25 MG TAB PO SCH (09:00)
[2022-10-08] MEDS ORDERED: CHLORTHALIDONE 25 MG TAB PO SCH (09:00)
[2022-10-08] MEDS ORDERED: MELOXICAM 7.5 MG TAB PO SCH (09:00)
[2022-10-08 09:51] VITALS: RESP 18
--- NOTE | 2022-10-08 10:19 | P.CONS ---
History of Present Illness - Reason for Consult Consult date: 10/08/22 Medical management diabetes mellitus, hypertension Requesting physician: Jeramie Cuevas - Chief Complaint Left Knee OA, s/p OR - History of Present Illness This is a 62-year-old female past medical history significant for diabetes mellitus, seasonal asthma, gastroesophageal reflux disease, hypertension, hyperlipidemia and multiple other medical issues status post left total knee arthroplasty. Tolerated procedure well. Denies nausea, vomiting. Passing flatus. Denies abdominal pain. Blood sugars controlled. Up in chair. Denies chest pain, palpitations or shortness of breath. Maintaining O2 sats in the high 90s on room air. Compliant with incentive spirometer. Pain controlled. Recently completed steps with PT. Tolerating exertion well.Denies lightheadedn ess dizziness or focal deficits. Review of Systems Constitutional: Denied any fatigue denied any fever. Cardio vascular: denied any chest pain, palpitations Gastrointestinal denied any nausea vomiting Pulmonary: Denied any shortness of breath cough Neurologic denied any new focal deficits ROS Statement: Those systems with pertinent positive or pertinent negative responses have been documented in the HPI. ROS Other: All systems not noted in ROS Statement are negative. Past Medical History Past Medical History: Asthma, Diabetes Mellitus, GERD/Reflux, Hyperlipidemia, Hypertension, Thyroid Disorder Additional Past Medical History / Comment(s): Currently on antibiotic for cut on ankle. BP fluctuates, palpitations, seasonal asthma, left knee bone spurs/pain. History of Any Multi-Drug Resistant Organisms: None Reported Past Surgical History: Back Surgery, Heart Catheterization, Joint Replacement, Orthopedic Surgery, Tubal Ligation Additional Past Surgical History / Comment(s): Total right knee replacement, trigger thumb release, half of thyroid removed for benign nodules. Past Anesthesia/Blood Transfusion Reactions: Previous Problems w/ Anesthesia Additional Past Anesthesia/Blood Transfusion Reaction / Comm: No hx blood transfusion. Very slow to wake from Anesthesia. Past Psychological History: No Psychological Hx Reported Smoking Status: Never smoker Past Alcohol Use History: None Reported, Rare Past Drug Use History: None Reported - Past Family History Father Family Medical History: Cancer, Hypertension Additional Family Medical History / Comment(s): of lung cancer, ileostomy Mother Family Medical History: Diabetes Mellitus, Hypertension Medications and Allergies Home Medications Medication Instructions Recorded Confirmed Type Levothyroxine Sodium [Synthroid] 88 mcg PO QAM 09/08/20 09/27/22 History Multivitamins, Thera [Multivitamin 1 tab PO QAM 09/08/20 09/27/22 History (formulary)] Acetaminophen Tab [Tylenol] 500 mg PO Q6H PRN 09/17/22 09/27/22 History Chlorthalidone 25 mg PO QAM 09/17/22 09/27/22 History Empagliflozin [Jardiance] 25 mg PO QAM 09/17/22 09/27/22 History Losartan [Cozaar] 25 mg PO QAM 09/17/22 09/27/22 History Cephalexin [Keflex] 500 mg PO BID 09/27/22 09/27/22 History Aspirin [Adult Low Dose Aspirin EC] 81 mg PO BID #1 tab 10/07/22 Rx Meloxicam 7.5 mg PO DAILY PRN #30 tab 10/07/22 Rx Ondansetron Odt [Zofran Odt] 4 mg PO Q8HR PRN #14 tab 10/07/22 Rx Sennosides-Docusate Sodium 1 tab PO BID #60 tablet 10/07/22 Rx [Senokot-S] traMADol HCl [Ultram] 50 mg PO Q6HR PRN #28 tab 10/07/22 Rx Allergies Allergy/AdvReac Type Severity Reaction Status Date / Time adhesive Allergy Rash/Hives Verified 10/07/22 13:19 Iodinated Contrast Media Allergy Rash/Hives Verified 10/07/22 13:19 codeine AdvReac "I felt Verified 10/07/22 13:19 very high" erythromycin base AdvReac Nausea & Verified 10/07/22 13:19 Vomiting Physical Exam Vitals: Vital Signs Temp Pulse Resp BP Pulse Ox 10/08/22 07:45 98.1 F 71 17 123/68 96 10/08/22 01:04 98.0 F 67 19 115/60 96 10/07/22 21:58 93 134/72 10/07/22 21:43 60 144/60 98 10/07/22 21:28 68 139/63 96 10/07/22 21:12 68 134/73 96 10/07/22 20:58 69 137/53 96 10/07/22 20:43 70 130/68 100 10/07/22 20:28 96 145/81 99 10/07/22 20:13 65 133/62 99 10/07/22 19:25 97.4 F L 69 19 154/79 97 10/07/22 18:55 66 16 134/68 100 10/07/22 18:30 76 17 137/64 100 10/07/22 18:00 57 L 16 135/66 100 10/07/22 17:45 59 L 16 135/61 100 10/07/22 17:30 55 L 16 134/72 100 10/07/22 17:15 58 L 16 138/62 100 10/07/22 17:00 61 16 145/56 100 10/07/22 16:45 67 16 135/61 100 10/07/22 16:40 71 16 140/67 100 10/07/22 16:28 96.8 F L 74 16 138/55 100 10/07/22 14:27 78 16 123/59 100 10/07/22 13:32 98.1 F 79 17 149/63 100 Intake and Output 10/07/22 10/08/22 10/08/22 22:59 06:59 14:59 Output Total 100 600 Balance -100 -600 Output: Urine 600 Estimated Blood Loss 100 Other: Voiding Method External Catheter # Voids 1 Weight 85.1 kg PHYSICAL EXAM: VITAL SIGNS: As above GENERAL: Sitting up in chair, no acute distress HEENT: Normocephalic Conjunctivae normal. eyes normal. NECK: Supple, No JVD. No thyroid enlargement. No LNs CARDIOVASCULAR: S1, S2 regular.. No murmur RESPIRATION: Breath sounds diminished in the bases. No rhonchi or crackles. No bronchial breathing. ABDOMEN: Soft, nontender . No guarding. no masses palpable. No ascites, No hepatosplenomegaly.Bowel sounds heard. LEGS: Left lower extremity dressing clean dry and intact, ice pack on top of site currently, mild edema. Denies calf tenderness, positive DP pulse. PSYCHIATRY: Alert and oriented X3, mood and affect normal. NERVOUS SYSTEM: Cranial N 2-12 grossly normal.No focal deficits. Strength and sensation grossly intact. Skin: warm and dry, no rash. Results Labs: Abnormal Lab Results - Last 24 Hours (Table) 10/08/22 Range/Units 06:00 POC Glucose (mg/dL) 119 H (70-110) mg/dL Assessment and Plan Assessment: Left total knee arthroplasty secondary to osteoarthritis Morbid obesity, BMI 34.3 Diabetes mellitus Hypertension Hyperlipidemia Chronic seasonal asthma, stable Gastroesophageal reflux disease Plan: Continue on current medication regime ,monitoring and symptomatic treatment. Aggressive pulmonary toileting with incentive spirometer reinforced. PPI ordered for GI prophylaxis. Pain management and DVT prophylaxis as per primary. Discharge planning in progress as per orthopedic surgery. Follow-up with PCP in one week. Thank you for the consult. The impression and plan of care has been dictated as directed. : I performed a history and examination of this patient, discussed the same with the dictator. I agree with the dictator's note ,documented as a scribe. Any additional findings or plans will be noted.
[2022-10-08] MEDS ORDERED: PANTOPRAZOLE 40 MG/10 ML VIAL IVP SCH (10:30)
--- NOTE | 2022-10-08 10:52 | P.DS ---
Providers Expected date of discharge: 10/08/22 Attending physician: Jeramie Cuevas Consults: 10/07/22 14:28 Consult Physician Routine Consulting Provider: Zack Correia Consult Reason/Comments: medical management Do you want consulting provider notified?: Yes Primary care physician: Shayy Pruett [facility] Course: This is a 62-year-old female who has been followed in our office by Dr. Cuevas for continued complaints of left knee pain due to left knee osteoarthritis. Treatment options were discussed, and patient elected to undergo a left total knee arthroplasty. Patient was seen pre-operatively by Jenae Montero NP, Dr. Forrester and cleared for surgery. Patient underwent a left total knee arthroplasty on 10/07/[address] Cuevas. The procedure was performed without complication or sequelae. The patient is doing fairly well postoperatively. Vital signs and labs are stable on postoperative day #1. Patient was examined bedside this morning. She is up to the bedside chair. Patient states she is overall doing very well and the pain in the left knee is well-controlled. She has been ambulating with a walker with minimal assistance. Patient has passed physical therapy this morning to return home. Patient is comfortable being discharged home today. Patient has no new complaints this morning. On examination, the patient is sitting up in the bedside chair in no apparent distress. She is alert and orientated 3. On inspection of the left knee, there is a clean, dry, intact surgical dressing in place with no bleeding or drainage through the dressing. Patient has good strength and ROM of the left ankle and toes. Motor and sensory function is intact of the left lower extremity. The dorsalis pedis pulse is easily palpable, the left lower extremity is warm and well perfused with brisk capillary refill. Calf is soft and non-tender to palpation. Patient is discharged home with home health care today in good condition, pending medical clearance. Patient will follow-up in the office at [facility] in 2 weeks. Please see med rec for accurate list of discharge medication. Plan - Discharge Summary Discharge Rx Participant: Yes New Discharge Prescriptions: New Aspirin [Adult Low Dose Aspirin EC] 81 mg PO BID #1 tab Sennosides-Docusate Sodium [Senokot-S] 1 tab PO BID #60 tablet traMADol HCl [Ultram] 50 mg PO Q6HR PRN #28 tab PRN Reason: Pain Meloxicam 7.5 mg PO DAILY PRN #30 tab PRN Reason: Pain Ondansetron Odt [Zofran Odt] 4 mg PO Q8HR PRN #14 tab PRN Reason: Nausea No Action Multivitamins, Thera [Multivitamin (formulary)] 1 tab PO QAM Empagliflozin [Jardiance] 25 mg PO QAM Chlorthalidone 25 mg PO QAM Acetaminophen Tab [Tylenol] 500 mg PO Q6H PRN PRN Reason: Pain Cephalexin [Keflex] 500 mg PO BID Levothyroxine Sodium [Synthroid] 88 mcg PO QAM Losartan [Cozaar] 25 mg PO QAM Discharge Medication List Levothyroxine Sodium [Synthroid] 88 mcg PO QAM 09/08/20 [History] Multivitamins, Thera [Multivitamin (formulary)] 1 tab PO QAM 09/08/20 [History] Acetaminophen Tab [Tylenol] 500 mg PO Q6H PRN 09/17/22 [History] Chlorthalidone 25 mg PO QAM 09/17/22 [History] Empagliflozin [Jardiance] 25 mg PO QAM 09/17/22 [History] Losartan [Cozaar] 25 mg PO QAM 09/17/22 [History] Cephalexin [Keflex] 500 mg PO BID 09/27/22 [History] Aspirin [Adult Low Dose Aspirin EC] 81 mg PO BID #1 tab 10/07/22 [Rx] Meloxicam 7.5 mg PO DAILY PRN #30 tab 10/07/22 [Rx] Ondansetron Odt [Zofran Odt] 4 mg PO Q8HR PRN #14 tab 10/07/22 [Rx] Sennosides-Docusate Sodium [Senokot-S] 1 tab PO BID #60 tablet 10/07/22 [Rx] traMADol HCl [Ultram] 50 mg PO Q6HR PRN #28 tab 10/07/22 [Rx] Follow up Appointment(s)/Referral(s): Addie Talbot PAC [PHYSICIAN [employer] SALES [employer]OCIATE] - 2 Weeks [facility], [NON-STAFF] - As Needed Activity/Diet/Wound Care/Special Instructions: May bear wt as tolerated w walker. Keep Optifoam dressing intact and remove 7 days post op. May remove stocking and jesica wrap and may shower 48h post op. Wear stocking during the day for 2 weeks post op. Discharge Disposition: HOME WITH HOME HEALTH SERVICES
[2022-10-08 11:02] LABS: Basophils # (A) 0.03 X 10*3/uL (0.00-0.10); Basophils % (A) 0.2 %; Eosinophils # (A) 0 X 10*3/uL (0.04-0.35); Eosinophils % (A) 0 %; HCT 39.6 % (37.2-46.3); HGB 13.3 d/dL (12.0-15.0); Lymphocytes # (A) 1.62 X 10*3/uL (0.90-5.00); Lymphocytes % (A) 11.1 %; MCH 30.4 pg (27.0-32.0); MCHC 33.6 d/dL (32.0-37.0); MCV 90.6 FL (80.0-97.0); Mean Platelet Volume 12.5 FL (9.5-12.2); Monocytes # (A) 0.91 X 10*3/uL (0.20-1.00); Monocytes % (A) 6.2 %; NRBC Per 100 WBC 0 X 10*3/uL (0.00-0.01); Neutrophils # (A) 11.96 X 10*3/uL (1.80-7.70); Neutrophils % (A) 82.1 %; Platelet Count 259 X 10*3/uL (140-440); RBC 4.37 X 10*6/uL (4.10-5.20); RDW 13.5 % (11.5-14.5); WBC 14.58 X 10*3/uL (4.50-10.00)
[2022-10-08 11:03] LABS: Glucose,Whole Blood 157 mg/dL (70-110)
[2022-10-09] MEDS ORDERED: LEVOTHYROXINE 88 MCG TAB PO SCH (06:30)
== END 2022-10-08 12:38 | disposition home health service (06) ==
LOC: OR 13:00 → 4SSUR 16:30 → OR 10-08 12:38
PROVIDERS: ATTEND Orthopaedic Surgery
DX: M17.12 Unilateral primary osteoarthritis, left knee (principal); G89.18 Other acute postprocedural pain; E11.9 Type 2 diabetes mellitus without complications; J45.909 Unspecified asthma, uncomplicated; K21.9 Gastro-esophageal reflux disease without esophagitis; I10 Essential (primary) hypertension; E78.5 Hyperlipidemia, unspecified; E07.9 Disorder of thyroid, unspecified; Z79.899 Other long term (current) drug therapy
CPT/HCPCS: 97161; 64999; 64448; 85025; 73560; 27447; C1713; C1776; C1751; J2250; J1100; J0690 ×2; J2405; J2795; J1170; J3010

== ENCOUNTER → 2022-11-07 | Outpatient (CLI) | payer OTHER ==
[2022-11-07 16:26] LABS: HCT 41.9 % (37.2-46.3); HGB 14.1 d/dL (12.0-15.0); MCH 30.9 pg (27.0-32.0); MCHC 33.7 d/dL (32.0-37.0); MCV 91.7 FL (80.0-97.0); Mean Platelet Volume 12.2 FL (9.5-12.2); NRBC Per 100 WBC 0 X 10*3/uL (0.00-0.01); Platelet Count 269 X 10*3/uL (140-440); RBC 4.57 X 10*6/uL (4.10-5.20); WBC 8.57 X 10*3/uL (4.50-10.00)
[2022-11-07 16:31] LABS: ALT 20 U/L (8-44); AST 23 U/L (13-35); Albumin 4.4 d/dL (3.8-4.9); Albumin/Globulin Ratio 1.42 Ratio (1.60-3.17); Alkaline Phosphatase 79 U/L (41-126); Blood Urea Nitrogen 16.1 mg/dL (9.0-27.0); Calcium 10.4 mg/dL (8.7-10.3); Carbon Dioxide 26.6 mmol/L (21.6-31.8); Chloride 102 mmol/L (96-109); Chol/HDL Ratio 3.94 Ratio; Globulin 3.1 d/dL (1.6-3.3); Glucose 121 mg/dL (70-110); LDL Cholesterol,Calculated 110.1 mg/dL (0.0-131.0); Potassium 3.9 mmol/L (3.5-5.5); Sodium 141 mmol/L (135-145); T4, Free (Free Thyroxine) 1.81 ng/dL (0.80-1.80); Total Bilirubin 0.5 mg/dL (0.3-1.2); Total Protein 7.5 d/dL (6.2-8.2)
[2022-11-07 18:22] LABS: Microalbumin Creatinine Ratio <6 mg/g Cr (0-30)
== END | disposition home or self-care (01) ==
LOC: LABWHC1 09:52
PROVIDERS: ATTEND Family Medicine
DX: I10 Essential (primary) hypertension (principal); E03.9 Hypothyroidism, unspecified; E11.65 Type 2 diabetes mellitus with hyperglycemia; E78.5 Hyperlipidemia, unspecified
CPT/HCPCS: 36415; 80053; 80061; 82043; 82570; 83036; 84439; 84443; 85027

== ENCOUNTER → 2022-11-14 | Outpatient (CLI) | payer OTHER ==
[2022-11-14 21:18] LABS: T4, Free (Free Thyroxine) 1.92 ng/dL (0.80-1.80)
== END | disposition home or self-care (01) ==
LOC: LABWHC1 13:19
PROVIDERS: ATTEND Family Medicine
DX: I10 Essential (primary) hypertension (principal); E03.9 Hypothyroidism, unspecified
CPT/HCPCS: 36415; 84439; 84443

== ENCOUNTER → 2022-12-20 | Outpatient (CLI) | payer OTHER ==
--- NOTE | 2022-12-20 11:28 | NM ---
EXAMINATION TYPE: NM thyroid image only DATE OF EXAM: 12/20/2022 COMPARISON: 03/31/2015 and ultrasound 04/21/2017 CLINICAL INDICATION: Female, 62 years old with history of E04.1 THYROID NODULE; TECHNIQUE: After the intravenous administration of 10.1 mCi Tc 99m Sodium Pertechnetate. FINDINGS: Physiologic uptake within the salivary glands. Background activity appears overall increased. There i s faint uptake uniformly in the region of the left thyroid lobe. No activity seen at the right thyroi dectomy bed. IMPRESSION: Only faint uniform uptake in the expected left thyroid lobe. Background activity appears overall increased. Query underlying hypothyroidism. No activity seen within the right thyroidectomy b ed. Consider ultrasound follow-up to reassess the left lobe nodules.
== END | disposition home or self-care (01) ==
LOC: RADNMMAIN 07:46
PROVIDERS: ATTEND Family Medicine
DX: E04.1 Nontoxic single thyroid nodule (principal)
CPT/HCPCS: 78013; A9512

== ENCOUNTER → 2022-12-27 | Outpatient (CLI) | payer OTHER | END | disposition home or self-care (01) | LOC: LABWHC1 13:15 | PROVIDERS: ATTEND Family Medicine | DX: Z53.9 Procedure and treatment not carried out, unspecified reason (principal) ==

== ENCOUNTER → 2023-02-20 | Outpatient (CLI) | payer OTHER ==
[2023-02-20 15:56] LABS: T4, Free (Free Thyroxine) 1.56 ng/dL (0.80-1.80)
== END | disposition home or self-care (01) ==
LOC: LABWHC1 09:41
PROVIDERS: ATTEND Nurse Practitioner Family
DX: E03.9 Hypothyroidism, unspecified (principal)
CPT/HCPCS: 36415; 84439; 84443

== ENCOUNTER → 2023-12-01 | Outpatient (CLI) | payer OTHER ==
[2023-12-01 18:14] LABS: HCT 43.2 % (37.2-46.3); HGB 14.5 g/dL (12.0-15.0); MCH 31.1 pg (27.0-32.0); MCHC 33.6 g/dL (32.0-37.0); MCV 92.7 FL (80.0-97.0); Mean Platelet Volume 12.2 FL (9.5-12.2); NRBC Per 100 WBC 0 X 10*3/uL (0.00-0.01); Platelet Count 302 X 10*3/uL (140-440); RBC 4.66 X 10*6/uL (4.10-5.20); RDW 13.8 % (11.5-14.5); WBC 8.03 X 10*3/uL (4.50-10.00)
[2023-12-01 19:08] LABS: ALT 17 U/L (8-44); AST 19 U/L (13-35); Albumin 4.4 g/dL (3.8-4.9); Albumin/Globulin Ratio 1.42 Ratio (1.60-3.17); Alkaline Phosphatase 90 U/L (41-126); BUN/Creat Ratio 14.58 Ratio (12.00-20.00); Blood Urea Nitrogen 17.5 mg/dL (9.0-27.0); Calcium 9.6 mg/dL (8.7-10.3); Chloride 99 mmol/L (96-109); Chol/HDL Ratio 3.94 Ratio; Globulin 3.1 g/dL (1.6-3.3); Glucose 182 mg/dL (70-110); LDL Cholesterol,Calculated 113.7 mg/dL (0.0-131.0); Sodium 139 mmol/L (135-145); Total Bilirubin 0.4 mg/dL (0.3-1.2); Total Protein 7.5 g/dL (6.2-8.2)
== END | disposition home or self-care (01) ==
LOC: LABWHC1 14:13
PROVIDERS: ATTEND Family Medicine
DX: I10 Essential (primary) hypertension (principal); E11.9 Type 2 diabetes mellitus without complications; E03.9 Hypothyroidism, unspecified; E78.5 Hyperlipidemia, unspecified; E04.1 Nontoxic single thyroid nodule
CPT/HCPCS: 36415; 80053; 80061; 83036; 84443; 85027